=== PATIENT | male | born 1980 | race Caucasian/White ===

== ENCOUNTER → 2021-11-10 | Outpatient (CLI) | payer OTHER ==
[~2021-11-10] MED LIST: CIPR500 PO; HYDR1TAB94 PO; HYOS.125 SL; MECL25 PO; METCAR500 PO; NAPR500 PO; NAPR550 PO; Norco 10-325 T1 EACH PO; OXYACE10 PO; OXYACE5T PO; OXYC5; RXOXYACE PO; Valium5 MG PO
[2021-11-10 17:29] LABS: BASOPHILS ABSOLUTE AUTO 0.05 K/mm3 (0.00-0.23); BASOPHILS PERCENT AUTO 1 % (0-2); EOSINOPHILS PERCENT AUTO 2 % (0-6); IMMATURE GRAN ABSOLUTE AUTO 0.03 K/mm3 (0.00-0.10); IMMATURE GRAN PERCENT AUTO 0 % (0-1); LYMPHOCYTES ABSOLUTE AUTO 1.04 K/mm3 (0.84-5.20); LYMPHOCYTES PERCENT AUTO 15 % (21-46); MONOCYTES ABSOLUTE AUTO 0.52 K/mm3 (0.16-1.47); MONOCYTES PERCENT AUTO 8 % (4-13); Mean Corpuscular HGB 28.7 pg (26.0-34.0); Mean Corpuscular HGB Conc 32.7 g/dL (31.5-36.5); Mean Corpuscular Volume 88 fL (80-100); Mean Platelet Volume 9.8 fL (9.1-12.4); NEUTROPHILS ABSOLUTE AUTO 5.03 K/mm3 (1.96-9.15); NEUTROPHILS PERCENT AUTO 74 % (41-73); Platelet Count 212 K/mm3 (150-400); RDW Coefficient Variation 12.9 % (11.7-14.2); RDW Standard Deviation 41.5 fL (35.1-46.3); Red Blood Cell Count 5.57 M/mm3 (4.30-5.90); White Blood Cell Count 6.77 K/mm3 (4.00-11.30)
[2021-11-10 17:45] LABS: Alanine Aminotransfer (ALT/SGP 46 U/L (12-78); Albumin, Blood 3.7 g/dL (3.4-5.0); Alk Phos 73 U/L (40-126); Anion Gap 4 mmol/L (6-16); Aspartate Aminotrans (AST/SGOT 34 U/L (12-37); Bilirubin, Total 0.4 mg/dL (0.1-1.0); Blood Urea Nitrogen 10 mg/dL (8-24); Bun/Creatinine Ratio 9.6 (12.0-20.0); CO2, Blood 30 mmol/L (21-32); Calcium, Blood 9.4 mg/dL (8.5-10.1); Chloride, Blood 105 mmol/L (98-108); Creatinine, Blood 1.04 mg/dL (0.60-1.20); Globulin, Blood 3.8 g/dL (2.2-4.0); Glomerular Filtration Rate >60 (60-); Glucose, Blood 108 mg/dL (70-99); Potassium, Blood 3.7 mmol/L (3.5-5.5); Sodium, Blood 139 mmol/L (136-145); Thyroid Stimulating Hormone 1.619 uIU/mL (0.360-4.800); Total Protein, Blood 7.5 g/dL (6.4-8.2)
== END ==
LOC: LAB SHORT 17:18
PROVIDERS: Physician Assistant
DX: R53.83 Other fatigue (principal); R36.1 Hematospermia
CPT/HCPCS: 80053; 83690; 84443; 85025; 87086

== ENCOUNTER 2023-08-04 01:06 | Emergency (ER) | payer OTHER ==
[~2023-08-04] VITALS: Ht 172.7 cm; Wt 79.4 kg
[2023-08-04 03:00] VITALS: BP 202/148
[2023-08-04] MEDS ORDERED: CEPH500 PO (05:49)
== END 2023-08-04 05:56 | disposition home or self-care (01) ==
LOC: ER 01:06
DX: S61.012A Laceration without foreign body of left thumb without damage to nail, initial encounter (principal); W31.2XXA Contact with powered woodworking and forming machines, initial encounter
CPT/HCPCS: 12002; 73140; 90471; 90714; 99283-25; A9270

== ENCOUNTER 2024-09-21 18:49 | Inpatient (IN) | payer OTHER ==
[~2024-09-21] VITALS: Ht 170.2 cm; Wt 72.3 kg
[~2024-09-21 18:49] MED LIST changes: +CEPH500 PO
[2024-09-21] MEDS ORDERED: Morphine Sulfate 4 MG/1 ML Injection IV ONE ×2 (19:00→21:40)
[2024-09-21] MEDS ORDERED: CeFAZolin Sodium 2,000 MG in NS 100 ML IV ONE (19:00)
[2024-09-21] MEDS ORDERED: Diphth,Pertuss(Acell),Tet Vac 0.5 ML VIAL IM ONE (19:05)
[2024-09-21 19:22] LABS: BASOPHILS ABSOLUTE AUTO 0.05 K/mm3 (0.00-0.23); BASOPHILS PERCENT AUTO 1 % (0-2); EOSINOPHILS ABSOLUTE AUTO 0.22 K/mm3 (0.00-0.68); EOSINOPHILS PERCENT AUTO 2 % (0-6); IMMATURE GRAN ABSOLUTE AUTO 0.07 K/mm3 (0.00-0.10); IMMATURE GRAN PERCENT AUTO 1 % (0-1); LYMPHOCYTES ABSOLUTE AUTO 1.73 K/mm3 (0.84-5.20); LYMPHOCYTES PERCENT AUTO 18 % (21-46); MONOCYTES ABSOLUTE AUTO 0.73 K/mm3 (0.16-1.47); MONOCYTES PERCENT AUTO 7 % (4-13); Mean Corpuscular HGB 28.6 pg (26.0-34.0); Mean Corpuscular HGB Conc 33.3 g/dL (31.5-36.5); Mean Corpuscular Volume 86 fL (80-100); Mean Platelet Volume 9.3 fL (9.1-12.4); NEUTROPHILS ABSOLUTE AUTO 7.02 K/mm3 (1.96-9.15); NEUTROPHILS PERCENT AUTO 72 % (41-73); Platelet Count 237 K/mm3 (150-400); RDW Coefficient Variation 12.6 % (11.7-14.2); RDW Standard Deviation 39.5 fL (35.1-46.3); Red Blood Cell Count 5.24 M/mm3 (4.30-5.90); White Blood Cell Count 9.82 K/mm3 (4.00-11.30)
[2024-09-21 19:32] LABS: International Normalized Ratio 0.96; Prothrombin Time Results 10.3 Sec (9.7-11.5)
[2024-09-21 19:49] LABS: Ethanol (Alcohol), Blood, Med <3 mg/dL
[2024-09-21 19:50] LABS: Alanine Aminotransfer (ALT/SGP 37 U/L (12-78); Albumin, Blood 3.7 g/dL (3.4-5.0); Albumin/Globulin Ratio 1.1 (0.8-1.8); Alk Phos 91 U/L (50-136); Anion Gap 7 mmol/L (3-11); Aspartate Aminotrans (AST/SGOT 67 U/L (12-37); Bilirubin, Total 0.6 mg/dL (0.1-1.0); Blood Urea Nitrogen 14 mg/dL (8-24); Bun/Creatinine Ratio 14.1 (12.0-20.0); CO2, Blood 27 mmol/L (21-32); Calcium, Blood 8.6 mg/dL (8.5-10.1); Chloride, Blood 106 mmol/L (98-108); Creatinine, Blood 0.99 mg/dL (0.60-1.20); Globulin, Blood 3.3 g/dL (2.2-4.0); Glomerular Filtration Rate 96 (60-); Glucose, Blood 115 mg/dL (70-99); Potassium, Blood 3.3 mmol/L (3.5-5.5); Sodium, Blood 137 mmol/L (136-145)
[2024-09-21] MEDS ORDERED: HYDROmorphone HCl/Pf 1MG SYR IV ONE ×2 (20:20→23:25)
[2024-09-21] MEDS ORDERED: Potassium Chloride 20 MEQ TabCR PO ONE (21:25)
[2024-09-22] MEDS ORDERED: HYDROmorphone HCl/Pf 1MG SYR IV PRN (00:40)
[2024-09-22] MEDS ORDERED: Ondansetron HCl 2 MG / ML 2ML Vial IV PRN (00:40)
[2024-09-22] MEDS ORDERED: Acetaminophen 325 MG TABLET PO PRN (00:40)
[2024-09-22 01:30] VITALS: BP 145/95
[2024-09-22 02:48] VITALS: BP 145/101
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
[2024-09-22 07:41] VITALS: BP 150/97
--- NOTE | 2024-09-22 07:52 | NUR ---
AM NOTE: PATIENT REPORTS PAIN HAS NOT BEEN CONTROLLED c CURRENT PAIN MEDICATION AND NPO STATUS. NOTIFIED ADMITTING DR. JAMES. PER DR. JAMES, PATIENT CAN EAT REGULAR DIET, NO SURGERY AND GIVE OXYCODONE 10 MG PO EVERY 4 HRS PRN FOR PAIN.
[2024-09-22] MEDS ORDERED: OxyCODONE HCL 5 MG TAB PO PRN (08:00)
--- NOTE | 2024-09-22 13:25 | NUR ---
NOTE: DR. JAMES DID ROUND ON PATIENT AT 1320. RECEIVED VO TO ORDERED PT, PLACED R ARM SLING FOR COMFORT AND F/U c DR. WEST (ORTHO) OUTPT IN 2 WEEKS.
[2024-09-22] MEDS ORDERED: FLU VACC TS2024-25(6MOS UP)/PF 45 MCG/0.5 ML SYRINGE IM PRN (13:45)
[2024-09-22] MEDS ORDERED: Ketorolac Tromethamine 30mg Vial IV PRN (13:50)
--- NOTE | 2024-09-22 16:34 | NUR ---
SHIFT SUMMARY: PATIENT A/OX4, PLEASANT AND COOPERATIVE c CARE. PATIENT REPORTS PAIN "ALL OVER.", MEDICATED FOR PAIN PER EMAR c GOOD EFFECT. PATIENT HAS R ARM SLING IMMOBILIZER IN PLACED FOR COMFORT. PATIENT DRESSING CHANGED TO L FOREARM, L PINKY AND R HEEL PER ORDER. PATIENT RECEIVED BEDBATH AND LINEN CHANGED THIS SHIFT. VITAL SIGNS REVIEWED. CALL LIGHT IN REACH.
[2024-09-22 16:38] VITALS: BP 139/84
[2024-09-22 20:42] VITALS: BP 135/97
[2024-09-23 02:32] VITALS: BP 147/92
--- NOTE | 2024-09-23 05:56 | NUR ---
SHIFT SUMMARY PT A&OX4 AND ANSWERS QUESTIONS APPROPRIATELY. PT MEDICATED PER EMAR WITH NO ADVERSE EFFECTS. PT VSS, NO COMPLAINTS OF CP/PRESSURE OR SOB. PT SPENT MOST OF SHIFT IN BED WITH EYES CLOSED AND RESPRIATIONS EVEN AND UNLABORED. NO ACUTE EVENTS AT THIS TIME. PT REPOSITIONED INDEPENDENTLY. PT LEFT IN A POSITION OF SAFETY WITH FALL PRECAUTIONS IN PLACE AND CALL LIGHT IN REACH.
[2024-09-23 07:38] VITALS: BP 154/106
--- NOTE | 2024-09-23 08:00 | NUR ---
ASSUMED CARE OF PATIENT. AWAKE DURING SHIFT-CHANGE REPORT. REPORTS PAIN 7/10 "ALL OVER". MEDICATED PRN IV TORADOL 30 AND PO OXYCODONE 10.
[2024-09-23 16:02] VITALS: BP 149/98
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
[2024-09-23 19:21] VITALS: BP 165/98
--- NOTE | 2024-09-24 03:32 | NUR ---
SHIFT SUMMARY NO ACUTE EVENTS OVERNIGHT, RESTED WELL, WOKE FOR PRN PAIN MEDS(OXYCODONE ALTERNATING WITH TORADOL) PER PT'S REQUEST TO STAY ON TOP OF PAIN. DRESSING CHANGED TO RT 5TH FINGER, REPORTS NOTES PLEASED THAT HE NOTES AN IMPROVEMENT IN HIS ABILITY TO MOVE HIS EXTREMITIES MORE EASILY INCLUDING IMPROVED ROM IN RUE/SHOULDER. REPORTS PAIN MEDS EFFECTIVE/ SEE EMAR FOR PAIN MEDICATION SCHEDULE
[2024-09-24 06:09] VITALS: BP 139/84
[2024-09-24 07:57] VITALS: BP 145/93
[2024-09-24] MEDS ORDERED: OXYC10TA19 PO (13:33)
[2024-09-24] MEDS ORDERED: CYCL10 PO (13:34)
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
== END 2024-09-24 15:05 | disposition home or self-care (01) | DRG 552 ==
LOC: ER 18:49 → ERHOLD 18:50 → MEDS 09-22 02:43
PROVIDERS: Student in an Organized Health Care Education/Training Program; ADMIT Internal Medicine
DX: S22.029A Unspecified fracture of second thoracic vertebra, initial encounter for closed fracture (principal); S22.039A Unspecified fracture of third thoracic vertebra, initial encounter for closed fracture; S43.101A Unspecified dislocation of right acromioclavicular joint, initial encounter; S40.011A Contusion of right shoulder, initial encounter; S50.11XA Contusion of right forearm, initial encounter; S90.01XA Contusion of right ankle, initial encounter; S80.11XA Contusion of right lower leg, initial encounter; Z90.5 Acquired absence of kidney; V89.2XXA Person injured in unspecified motor-vehicle accident, traffic, initial encounter
CPT/HCPCS: 70450; 71045; 71260; 72125; 73030; 73090; 73120; 73590; 73620; 74177; 80053; 80320; 83690; 85025; 85610; 90471; 90715; 96365; 96375; 96376; 97110; 97162; 97530; 99285-25; A9270; G0378; J0690; J1171; J1885; J2270; Q9967